=== PATIENT | female | born 1985 | race Hispanic/Latino ===

== ENCOUNTER 2018-02-23 12:41 | Emergency (ER) | payer OTHER, MEDICAID, SELFPAY ==
[2018-02-23 12:50] VITALS: BP 149/87; PULSE 104; RESP 16; TEMP 36.9; O2SAT 99; BMI 37.8
--- NOTE | 2018-02-23 13:15 | DI.RAD.S_ITS ---
PROCEDURE: XR CHEST 2V INDICATIONS: pleuritic chest pain. In ED waiting room TECHNIQUE: 2 views of the chest were acquired. COMPARISON: None. FINDINGS: Surgical changes and devices: None. Lungs and pleura: No pleural effusions or pneumothorax. Lungs are clear. Mediastinum: Mediastinal contours are normal. Heart size is normal. Bones and chest wall: No suspicious bony abnormalities. Soft tissues appear unremarkable. IMPRESSION: Negative chest. No acute cardiopulmonary process is evident. Dictated by: Nasir Torres M.D. on 02/23/2018 at 12:56 Approved by: Nasir Torres M.D. on 02/23/2018 at 13:04
[2018-02-23 15:00] LABS: Add Manual Diff / Slide Review NO; Basophils Percent Auto 0.5 % (0-2); Eosinophils Percent Auto 2.4 % (2-4); Hematocrit 37.4 % (36-46); Hemoglobin 12.5 g/dL (12.0-16.0); Lymphocytes Percent Auto 21.7 % (25-40); Mean Corpuscular HGB Conc 33.5 % (30-36); Mean Corpuscular Hemoglobin 28.7 PG (26-34); Mean Corpuscular Volume 85.6 fL (80-100); Monocytes Percent Auto 5.3 % (3-14); Neutrophils Absolute Auto 9000 /uL (3000-5900); Neutrophils Percent Auto 70.1 % (50-75); Platelet Count 370 X10^3/uL (150-400); Red Blood Cell Count 4.37 X10^6/uL (4.0-5.2); Red Cell Distribution Width 13.5 % (11.6-14.8); White Blood Cell Count 12.8 X10^3/uL (4.5-11.0)
[2018-02-23 15:07] LABS: INR 1.2 (0.9-1.3); Prothrombin Time 13.2 SECONDS (10.1-12.7)
[2018-02-23 15:10] LABS: PTT Partial Thromboplastin Tim 34 SECONDS (26.4-36.2)
[2018-02-23 15:13] LABS: Alanine Aminotransferase 35 IU/L (9-52); Albumin 4.6 g/dL (3.5-5.0); Albumin Globulin Ratio 1.3 (1.0-2.8); Alkaline Phosphatase 86 U/L (38-126); Aspartate Aminotransferase 34 IU/L (14-36); BUN Creatinine Ratio 16.7 (6-22); Bilirubin Total 0.4 mg/dL (0.2-1.3); Blood Urea Nitrogen 10 mg/dL (7-17); Calcium 9.2 mg/dL (8.4-10.2); Carbon Dioxide 28 mmol/L (22-32); Chloride 100 mmol/L (98-107); Creatine Kinase 147 U/L (30-135); Estimated Glomerular Filt Rate > 60.0 mL/min (>60); Globulin 3.6 g/dL (1.7-4.1); Glucose 93 mg/dL (70-100); HEMOLYSIS < 15 (0-50); Potassium 3.9 mmol/L (3.4-5.1); Sodium 139 mmol/L (137-145); Total Protein 8.2 g/dL (6.3-8.2)
[2018-02-23 15:28] LABS: Troponin I < 0.012 ng/mL (0.01-0.034)
[2018-02-23 15:29] LABS: CKMB % Relative Index 0.8 % (1.5-5.0); Creatine Kinase MB 1.13 ng/mL (<2.37)
--- NOTE | 2018-02-23 15:42 | ED.CHESTPAIN ---
HPI - Chest Pain General Chief Complaint: Chest Pain Stated Complaint: achey left side chest x4 days Time Seen by Provider: 02/23/18 14:30 Source: patient Mode of arrival: ambulatory Limitations: no limitations History of Present Illness HPI narrative: Patient complains of a sore area in her left chest for the past 4 days. She denies radiation of the pain or association with nausea or shortness of breath. No diaphoresis or lightheadedness. Patient has no history of any heart or lung problems, and no history of DVT. Her pain at worst has been about a 4/10, and is currently a 2/10. Patient states that she has been under some stress recently. No history of family members with MIs at a young age. Pain does not get worse with exertion, but does get worse with deep breaths. Related Data Home Medications Medication Instructions Recorded Confirmed No Known Home Medications 02/23/18 02/23/18 Allergies Allergy/AdvReac Type Severity Reaction Status Date / Time avocado [AVOCADO] Allergy Severe EYES Verified 02/23/18 12:50 DROPPING, RASH AROUND MOUTH, BREATHING ABNORMALLY amoxicillin [From AUGMENTIN] AdvReac Intermediate EXPLOSIVE Verified 02/23/18 12:50 DIARRHEA clavulanic acid AdvReac Intermediate EXPLOSIVE Verified 02/23/18 12:50 [From AUGMENTIN] DIARRHEA Review of Systems Review of Systems All systems reviewed & are unremarkable except as noted in HPI and below Constitutional Denies chills, Denies fever(s), Denies lethargy and Denies weakness Eyes Denies change in vision, Denies eye discharge, Denies irritation and Denies loss of vision ENT Ears, Nose, Mouth, and Throat: Denies change in voice, Denies neck pain and Denies sore throat Cardiovascular Reports chest pain, Denies irregular heart rhythm, Denies lightheadedness, Denies palpitations, Denies dyspnea, Denies dyspnea on exertion and Denies orthopnea Respiratory Denies cough, Denies dyspnea, Denies dyspnea on exertion and Denies wheezing Gastrointestinal Gastrointestinal: Denies abdominal pain, Denies change in bowel habits, Denies diarrhea, Denies nausea and Denies vomiting Genitourinary Denies hematuria, Denies flank pain, Denies urinary incontinence and Denies urinary urgency Musculoskeletal Denies neck pain Integumentary/Breasts Denies pruritus, Denies erythema, Denies rash and Denies wounds Neurologic Denies confusion, Denies loss of vision and Denies weakness Psychiatric Denies anxiety, Denies confusion, Denies depression, Denies homicidal ideation and Denies suicidal ideation Endocrine Denies palpitations Hematologic/Lymphatic Denies easy bruising Allergic/Immunologic Denies wheezing FOR[facility]LY [facility] Medical History Asthma (Chronic 1987) Eczema (Chronic 1992) Hayfever (Chronic 1987) History of cold sores (Chronic ~1994) Chicken pox (Resolved ~1999) Surgical History History of laparoscopic cholecystectomy (Resolved 01/09/17) Status post delivery (Resolved 08/24/13) Status post delivery (Resolved 11/02/16) Family History Grandmother Age: 72 Hypertension High cholesterol Mother Age: 48 Cancer Brother Hypertension Family/Other No problems noted. Grandfather No problems noted. Social History Smoking Status: Never smoker Exam Initial Vital Signs Initial Vital Signs: Vital Signs Temperature 98.5 F 02/23/18 12:50 Pulse Rate 104 H 02/23/18 12:50 Respiratory Rate 16 02/23/18 12:50 Blood Pressure 149/87 H 02/23/18 12:50 Pulse Oximetry 99 02/23/18 12:50 Const General: cooperative and well developed Nutritional Appearance: well nourished Orientation: alert, awake, oriented x3 and not confused [facility] Head: normocephalic and atraumatic Ears: external ears normal Nose: external nose normal and No nasal discharge Face and sinus: face symmetric and No dry mucous membranes Mouth: oral mucosae normal and moist mucous membranes Teeth and gingiva: dentition normal Eyes General: appearance normal, both eyes and all related structures Eyelids: eyelids normal Conjunctivae: conjunctivae normal Sclera: sclerae normal Pupils: PERRL EOM: EOM intact bilaterally Neck Neck: normal visual inspection, trachea midline, No lymphadenopathy, No midline deformity and No JVD Lymphatic: No lymphedema Chest Chest: normal inspection of the chest Resp Effort & Inspection: normal respiratory effort, able to speak in complete sentences, no respiratory distress and no use of accessory muscles Auscultation: clear to auscultation bilaterally, no rales, no rhonchi and no wheezes Cardio Rate: regular rate Rhythm: regular rhythm Heart Sounds: no click, no gallops, no murmurs and no rubs Pulses: normal peripheral pulses GI Inspection: non-distended Palpation: soft, no hepatosplenomegaly, No guarding, No pulsatile mass and No tender Back/Spine/Pelvis Back: No CVA tenderness Cervical Spine: cervical ROM normal and No pain with cervical ROM Thoracic/Lumbar Spine: thoracic and lumbar spine normal to inspection Skin General: no rashes or lesions noted, No jaundice and No petechiae Neuro General: alert, oriented x3, gait normal and no focal motor deficits Speech: speech normal Extrem General: full ROM, no clubbing, cyanosis or edema, no pedal edema and no calf tenderness Psych Appearance: well kempt Mental Status: mental status grossly normal Attitude: cooperative Thought Content: normal and suicidality Judgment: judgment good Course Course Narrative: patient remained stable throughout her stay in the emergency department. The patient was low risk for any serious or emergent cause of chest pain, but due to the left-sided nature of her chest pain, labs, EKG, and chest x-ray were all performed. These were found to be unremarkable. I did feel the patient was stable for discharge home. We have discussed that the source of the patient's pain is most likely coming from her chest wall, and have discussed home management symptoms. We have also discussed the usual indications for return. Orders Ordered: ED Orders 02/23/18 13:15 XR chest 2V Stat 02/23/18 14:51 Complete Blood Count AUTO DIFF Stat Comprehensive Metabolic Panel Stat Partial Thromboplastin Time Stat Prothrombin Time INR Stat Troponin & CK Cardiac Panel Stat Vital Signs - 8 hr 02/23/18 12:50 Temperature 98.5 F Pulse Rate 104 H Respiratory Rate 16 Blood Pressure 149/87 H Pulse Oximetry 99 MDM - Chest Pain Medical Records Data Attestation: I reviewed the patient's medical records. Lab Data Attestation: I reviewed the patient's lab results. Result diagrams: 02/23/18 14:51 02/23/18 14:51 Lab Results 02/23/18 02/23/18 02/23/18 Range/Units 14:51 14:51 14:51 WBC 12.8 H (4.5-11.0) X10^3/uL RBC 4.37 (4.0-5.2) X10^6/uL Hgb 12.5 (12.0-16.0) g/dL Hct 37.4 (36-46) % MCV 85.6 (80-100) fL MCH 28.7 (26-34) PG MCHC 33.5 (30-36) % RDW 13.5 (11.6-14.8) % Plt Count 370 (150-400) X10^3/uL Neut % (Auto) 70.1 (50-75) % Lymph % (Auto) 21.7 L (25-40) % [place] % (Auto) 5.3 (3-14) % Eos % (Auto) 2.4 (2-4) % Baso % (Auto) 0.5 (0-2) % Neut # (Auto) 9000 H (4396-3475) /uL PT 13.2 H (10.1-12.7) SECONDS INR 1.2 (0.9-1.3) APTT 34 (26.4-36.2) SECONDS D-Dimer < 200 (<230) ng/mL Sodium 139 (137-145) mmol/L Potassium 3.9 (3.4-5.1) mmol/L Chloride 100 (98-107) mmol/L Carbon Dioxide 28 (22-32) mmol/L BUN 10 (7-17) mg/dL Creatinine 0.60 (0.52-1.04) mg/dL Estimated GFR > 60.0 (>60) mL/min BUN/Creatinine Ratio 16.7 (6-22) Glucose 93 (70-100) mg/dL Calcium 9.2 (8.4-10.2) mg/dL Total Bilirubin 0.4 (0.2-1.3) mg/dL AST 34 (14-36) IU/L ALT 35 (9-52) IU/L Alkaline Phosphatase 86 (38-126) U/L Total Creatine Kinase 147 H (30-135) U/L CK-MB (CK-2) 1.13 (<2.37) ng/mL CK-MB (CK-2) Rel Index 0.8 L (1.5-5.0) % Troponin I < 0.012 (0.01-0.034) ng/mL Total Protein 8.2 (6.3-8.2) g/dL Albumin 4.6 (3.5-5.0) g/dL Globulin 3.6 (1.7-4.1) g/dL Albumin/Globulin Ratio 1.3 (1.0-2.8) Imaging Data Chest x-ray: Attestation: I personally reviewed and interpreted this imaging study as follows: My impression: Negative Radiologist's impression: [address] [id number] XRay Report Signed Patient: Ruma Quan FMR#: [id number] : 1985Acct:[id number] Age/Sex: 32 / FDate of Service: 02/23/18 Loc: ED Accession Number: [id number] Procedure: XR chest 2V Ordering Provider: Melani Sweeney MD PROCEDURE: XR CHEST 2V INDICATIONS: pleuritic chest pain. In ED waiting room TECHNIQUE: 2 views of the chest were acquired. COMPARISON: None. FINDINGS: Surgical changes and devices: None. Lungs and pleura: No pleural effusions or pneumothorax. Lungs are clear. Mediastinum: Mediastinal contours are normal. Heart size is normal. Bones and chest wall: No suspicious bony abnormalities. Soft tissues appear unremarkable. IMPRESSION: Negative chest. No acute cardiopulmonary process is evident. Dictated by: Nasir Torres M.D. on 02/23/2018 at 12:56 Approved by: Nasir Torres M.D. on 02/23/2018 at 13:04 ECG Data Attestation: I personally reviewed and interpreted this ECG as follows: Discharge Plan Departure Patient Disposition: Home Clinical Impression: Acute chest wall pain Discharge Date/Time: 02/23/18 16:46 Interventions: ED Discharge Assessment Last Done: 02/23/18 16:45 Instructions: DI for Costochondritis Activity Restrictions/Additional Instructions: Your EKG, x-ray, and labs all look good. There is no evidence of a serious or emergent cause of your pain. The pain is most likely coming from the wall of your chest (muscles and muscle connections with the ribs). Prescriptions: No Action No Known Home Medications RF: 0 Referrals: Samara Downey MD [Primary Care Provider] -
[2018-02-23 16:20] LABS: D Dimer < 200 ng/mL (<230)
[2018-02-23 16:26] VITALS: BP 125/74; PULSE 84; RESP 16; O2SAT 100
[2018-02-23 16:45] VITALS: BP 139/84; PULSE 82; RESP 18; O2SAT 100
== END 2018-02-23 16:46 | disposition home or self-care (01) ==
PROVIDERS: Emergency Provider Emergency Medicine; PCP Family Medicine
DX: R07.89 Other chest pain (principal)
CPT/HCPCS: 36591; 71046; 80053; 82550; 82553; 84484; 85025; 85379; 85610; 85730; 93005; 99283; 99285